=== PATIENT | male | born 1995 | race Two or more races ===

== ENCOUNTER 2016-12-06 20:46 | Emergency (ER) | payer OTHER ==
[~2016-12-06] VITALS: Ht 180.3 cm; Wt 100.1 kg
[2016-12-06 20:47] VITALS: BP 128/62
== END 2016-12-06 21:51 | disposition home or self-care (01) ==
LOC: M ED 20:46
DX: S61.011A Laceration without foreign body of right thumb without damage to nail, initial encounter (principal); W27.0XXA Contact with workbench tool, initial encounter; Y92.018 Other place in single-family (private) house as the place of occurrence of the external cause; Y93.89 Activity, other specified; Y99.8 Other external cause status

== ENCOUNTER → 2017-03-17 | Outpatient (REF) | payer OTHER | LOC: M SFHCLERA 10:33 | PROVIDERS: ATTEND Physician Assistant | DX: J02.9 Acute pharyngitis, unspecified (principal) ==